=== PATIENT | male | born 1960 | race Caucasian/White ===

== ENCOUNTER → 2022-04-21 | Day surgery (SDC) | payer MEDICARE ==
[~2022-04-21] MED LIST: AMLODIPINE BESY10 MG PO; ASPIRIN81 MG PO; ATORVASTATIN CA40 MG PO; COREG 25MG TAB25 MG PO; DEMADEX 20 MG T20 MG PO; DULOXETINE HCL30 MG PO; DULOXETINE HCL60 MG PO; ELIQUIS5 MG PO; HYDRALAZINE HC100 MG PO; K2-4545 MCG PO; KLONOPIN TAB 00.5 MG PO; KLOR-CON M1010 MEQ PO; MYCOPHENOLATE250 MG PO; NIACIN250 MG PO; PANTOPRAZOLE SO20 MG PO; QUETIAPINE FUMA50 MG PO; VALACYCLOVIR500 MG PO; ZINC50 M2 PO
== END | disposition home or self-care (01) ==
LOC: OR 06:28
DX: Z12.11 Encounter for screening for malignant neoplasm of colon (principal); K64.0 First degree hemorrhoids; I10 Essential (primary) hypertension
CPT/HCPCS: J2704; J7040